=== PATIENT | male | born 1980 | race Caucasian/White ===

== ENCOUNTER 2017-04-13 22:27 | Emergency (ER) | payer MEDICAID ==
[~2017-04-13] VITALS: Ht 177.8 cm; Wt 54.0 kg
[2017-04-13 22:31] VITALS: BP 130/55
== END 2017-04-14 01:45 | disposition left against medical advice (07) ==
LOC: ER 22:34
DX: R10.9 Unspecified abdominal pain (principal); Z53.21 Procedure and treatment not carried out due to patient leaving prior to being seen by health care provider